=== PATIENT | female | born 2005 | race Caucasian/White ===

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

== ENCOUNTER → 2024-02-11 11:08 | Outpatient (CLI) | payer OTHER, SELFPAY ==
[2024-02-11 15:47] LABS: HEMOLYSIS 26 (0-50); Iron 224 ug/dL (37-170)
[2024-02-11 15:57] LABS: Total Iron Binding Capacity 273 ug/dL (265-497); Transferrin 196 mg/dL (206-381)
[2024-02-11 15:58] LABS: Add Manual Diff / Slide Review NO; Basophils Absolute Auto 0 /uL (0-100); Basophils Percent Auto 0.8 % (0-2); Eosinophils Absolute Auto 100 /uL (0-450); Eosinophils Percent Auto 2.3 % (2-4); Hematocrit 51.5 % (36-46); Hemoglobin 17.9 g/dL (12.0-16.0); Lymphocytes Absolute Auto 2300 /uL (1100-4500); Lymphocytes Percent Auto 38.3 % (25-40); Mean Corpuscular HGB Conc 34.7 % (30-36); Mean Corpuscular Hemoglobin 32.7 PG (26-34); Mean Corpuscular Volume 94.1 fL (80-100); Monocytes Absolute Auto 500 /uL (0-900); Monocytes Percent Auto 7.7 % (3-14); Neutrophils Absolute Auto 3100 /uL (1500-7000); Neutrophils Percent Auto 50.9 % (50-75); Platelet Count 324 X10^3/uL (150-400); Red Blood Cell Count 5.48 X10^6/uL (4.0-5.2); Red Cell Distribution Width 12.3 % (11.6-14.8)
[2024-02-11 16:00] LABS: Percent Iron Saturation 82 % (15-50)
[2024-02-11 16:06] LABS: Free T3, Triiodothyronine Free 8.32 pg/mL (2.77-5.27); Free T4, Direct Thyroxine 1.31 ng/dL (0.78-2.19)
[2024-02-11 16:15] LABS: Vitamin D 25 Hydroxy (D3) 22.3 ng/mL (30.0-100.0)
[2024-02-11 16:22] LABS: Ferritin 61 ng/mL (6-137)
[2024-02-11 16:31] LABS: Estradiol, Total 29.3 pg/mL
[2024-02-11 16:53] LABS: Folate 9.5 ng/mL (2.76-20.0); Vitamin B12 547 pg/mL (239-931)
[2024-02-12 07:36] LABS: Thyroid Peroxidase Antibodies <9 IU/mL (0-26)
[2024-02-12 21:08] LABS: Anti Thyroglobulin Antibody <1.0 IU/mL (0.0-0.9)
== END ==
PROVIDERS: PCP Pediatrics
DX: O99.280 Endocrine, nutritional and metabolic diseases complicating pregnancy, unspecified trimester (principal); E03.9 Hypothyroidism, unspecified; E34.9 Endocrine disorder, unspecified; F32.A Depression, unspecified; F41.9 Anxiety disorder, unspecified; F90.9 Attention-deficit hyperactivity disorder, unspecified type; F64.9 Gender identity disorder, unspecified; R53.83 Other fatigue; R51.9 Headache, unspecified; Z00.00 Encounter for general adult medical examination without abnormal findings; Z83.49 Family history of other endocrine, nutritional and metabolic diseases
CPT/HCPCS: 82306; 82607; 82670; 82728; 82746; 83540; 83550; 84402; 84403; 84439; 84443; 84481; 85025; 86376; 86800

== ENCOUNTER → 2024-06-04 14:21 | Outpatient (CLI) | payer OTHER, SELFPAY ==
[2024-06-04 19:47] LABS: Add Manual Diff / Slide Review NO; Basophils Absolute Auto 100 /uL (0-100); Basophils Percent Auto 0.8 % (0-2); Eosinophils Absolute Auto 200 /uL (0-450); Eosinophils Percent Auto 2.6 % (2-4); Hematocrit 49.9 % (36-46); Hemoglobin 17.3 g/dL (12.0-16.0); Lymphocytes Absolute Auto 2400 /uL (1100-4500); Lymphocytes Percent Auto 36.3 % (25-40); Mean Corpuscular HGB Conc 34.7 % (30-36); Mean Corpuscular Hemoglobin 32.8 PG (26-34); Mean Corpuscular Volume 94.4 fL (80-100); Monocytes Absolute Auto 600 /uL (0-900); Monocytes Percent Auto 8.7 % (3-14); Neutrophils Absolute Auto 3400 /uL (1500-7000); Neutrophils Percent Auto 51.6 % (50-75); Platelet Count 324 X10^3/uL (150-400); Red Blood Cell Count 5.28 X10^6/uL (4.0-5.2); Red Cell Distribution Width 12.6 % (11.6-14.8); White Blood Cell Count 6.6 X10^3/uL (4.5-11.0)
[2024-06-04 20:07] LABS: Free T3, Triiodothyronine Free 4.93 pg/mL (2.77-5.27); Free T4, Direct Thyroxine 0.97 ng/dL (0.78-2.19)
[2024-06-04 20:20] LABS: Thyroid Stimulating Hormone 1.54 uIU/mL (0.47-4.68)
[2024-06-04 20:32] LABS: Estradiol, Total 31.2 pg/mL
[2024-06-04 20:40] LABS: Vitamin B12 590 pg/mL (239-931)
[2024-06-04 22:07] LABS: Ferritin 31 ng/mL (6-137); Testosterone 598 ng/dL (5.71-77.0)
== END ==
PROVIDERS: PCP Pediatrics; Visit Provider Advanced Practice Midwife
DX: Z00.00 Encounter for general adult medical examination without abnormal findings (principal); E03.9 Hypothyroidism, unspecified; E34.9 Endocrine disorder, unspecified; F32.A Depression, unspecified; F41.9 Anxiety disorder, unspecified; F64.9 Gender identity disorder, unspecified; F90.9 Attention-deficit hyperactivity disorder, unspecified type; R51.9 Headache, unspecified; R53.83 Other fatigue; Z83.49 Family history of other endocrine, nutritional and metabolic diseases
CPT/HCPCS: 82607; 82670; 82728; 84403; 84439; 84443; 84481; 85025

== ENCOUNTER → 2024-12-12 10:12 | Outpatient (CLI) | payer OTHER, SELFPAY | PROVIDERS: PCP Pediatrics; Visit Provider Pediatrics | DX: N39.0 Urinary tract infection, site not specified (principal) | CPT/HCPCS: 87086 ==

== ENCOUNTER → 2025-04-23 11:30 | Outpatient (CLI) | payer OTHER, SELFPAY ==
--- NOTE | 2025-04-23 11:32 | DI.CT.S_ITS ---
PROCEDURE: CT ABDOMEN PELVIS WO CON INDICATIONS: ABD PAIN TECHNIQUE: Axial sections were acquired from the lung bases to the pubic symphysis. Coronal and sagittal reformats were performed. For radiation dose reduction, the following was used: automated exposure control, adjustment of mA and/or kV according to patient size. COMPARISON: None. FINDINGS: Image quality: Diagnostic. Lower Chest: No significant findings. URINARY: Kidney/ureter: Multiple tiny punctate nonobstructing right renal stones measuring between 1-2 mm in size. No hydronephrosis. No perinephric stranding. Right ureter is normal in course and caliber without ureteral stone or periureteral stranding. Left kidney is normal in appearance without nephrolithiasis or hydronephrosis. Left ureter is normal in course and caliber without ureteral stone or periureteral stranding. Bladder: Normal wall thickness. No stones. ABDOMEN: Liver: No contour-deforming solid mass. Gallbladder: No radiopaque gallstones or wall thickening. Biliary ducts: No biliary dilation. Pancreas: No ductal dilation. Spleen: Size is within normal limits. Adrenal Glands: No adrenal nodules. Stomach and Bowel: Normal colonic caliber, without significant wall thickening. Normal appendix. No evidence for small bowel obstruction or associated inflammatory changes. Moderate fecal burden seen throughout the colon. Peritoneum: No abnormal intraperitoneal fluid. No free air. Ventral Wall: No hernia. Abdominal Nodes: No enlarged retroperitoneal or mesenteric lymph nodes. Vessels: Aorta and inferior vena cava are normal in size. PELVIS: Pelvic Organs: Unremarkable. Pelvic Nodes: Unremarkable. Miscellaneous: No inguinal hernias are seen. Bones: Unremarkable. Visualized osseous structures appear intact without acute fracture or focal destructive lesion. No acute compression fractures of the imaged spine. IMPRESSION: Multiple small, punctate nonobstructing right renal stones measuring between 1-2 mm in size. No evidence for hydroureteronephrosis. No ureteral stones seen. No acute inflammatory changes. Normal appearance of the left kidney and ureter. Normal appendix. Moderate fecal burden seen throughout the colon possibly related to constipation. Dictated by: Dylon Gore M.D. on 04/23/2025 at 13:28 Approved by: Dylon Gore M.D. on 04/23/2025 at 13:31
== END ==
LOC: CT 11:31
PROVIDERS: PCP Family Medicine; Referring Provider Family Medicine; Visit Provider Family Medicine
DX: R10.9 Unspecified abdominal pain (principal); R31.29 Other microscopic hematuria
CPT/HCPCS: 74176